=== PATIENT | male | born 1950 | race Caucasian/White ===

== ENCOUNTER 2017-08-14 08:47 | Inpatient (IN) | payer OTHER ==
[~2017-08-14] VITALS: Ht 177.8 cm; Wt 103.5 kg
[2017-08-14 09:09] LABS: BASOPHIL (%) 0.5 % (0-1); BASOPHIL COUNT 0.1 K/uL (0-0.1); EOSINOPHIL (%) 0.9 % (0-5); EOSINOPHIL COUNT 0.1 K/uL (0-0.3); HEMATOCRIT 45.5 % (38.0-50.0); HEMOGLOBIN 15.9 G/DL (12.5-16.6); IMMATURE GRANULOCYTE (%) 3.4 % (0.0-0.7); LYMPHOCYTE (%) 41.5 % (15-42); LYMPHOCYTE COUNT 4.6 K/uL (1.0-2.8); MCH 33.6 PG (29.0-34.0); MCHC 34.9 G/DL (30.0-36.0); MCV 96.2 FL (86-99); MONOCYTE (%) 7.3 % (3-12); MONOCYTE COUNT 0.8 K/uL (0-0.8); NEUTROPHIL (%) 46.4 % (45-76); NEUTROPHIL COUNT 5.1 K/uL (1.8-6.4); NRBC (%) 0.3 /100 WBC (0-0); PLATELET COUNT 182 K/uL (156-360); RBC DIS.WIDTH-CV 12.4 % (11.8-14.6); RBC DIS.WIDTH-SD 44.1 % (39-53); RED BLOOD COUNT 4.73 M/uL (4.00-5.50)
[2017-08-14 09:20] LABS: AMYLASE 48 IU/L (1-118); CHLORIDE 103 mEq/L (99-109); POTASSIUM 3.9 mEq/L (3.7-5.4); SODIUM 135 mEq/L (136-147)
[2017-08-14 09:22] LABS: GLUCOSE 106 mg/dL (70-99)
[2017-08-14 09:25] LABS: SERUM ETHYL ALCOHOL < 10 mg/dL
[2017-08-14 09:26] LABS: CREATININE 1.1 mg/dL (0.6-1.3); GFR ESTIMATE (CALCULATED) > 59 mL/min/ (58.99-99999); UREA NITROGEN (BUN) 13 mg/dL (9-23)
[2017-08-14 09:29] LABS: LIPASE 18 U/L (1.0-51.0)
[2017-08-14] MEDS ORDERED: FISH OIL 1,0001 EAC7 PO (11:22)
[2017-08-14] MEDS ORDERED: VITAMIN D31000 UNI2 PO (11:22)
[2017-08-14 12:35] VITALS: BP 126/73
[2017-08-14 15:39] LABS: APPEARANCE CLEAR ((CLEAR)); BILIRUBIN NEGATIVE; BLOOD NEGATIVE; COLOR YELLOW ((YELLOW)); GLUCOSE (STRIP) NEGATIVE; KETONES NEGATIVE; LEUKOCYTES NEGATIVE; NITRITE NEGATIVE; PROTEIN (STRIP) NEGATIVE; UCUL ADDED? NO; UROBILINOGEN 0.2 MG/DL (0.2-1.0)
[2017-08-14 15:58] LABS: SPECIFIC GRAVITY 1.053 (1.000-1.030)
[2017-08-14 16:02] LABS: AMPHETAMINE NEGATIVE (500 ng/mL); BARBITURATES NEGATIVE (200 ng/mL); BENZODIAZEPINES NEGATIVE (150 ng/mL); BUPRENORPHINE NEGATIVE (10 ng/mL); COCAINE NEGATIVE (150 ng/mL); METHADONE NEGATIVE (200 ng/mL); METHAMPHETAMINE NEGATIVE (500 ng/mL); OPIATES (MORPHINE) PRESUMPTIVE POSITIVE (100 ng/mL); OXYCODONE NEGATIVE (100 ng/mL); PHENCYCLIDINE NEGATIVE (25 ng/mL); PROPOXYPHENE NEGATIVE (300 ng/mL); THC CANNABINOIDS NEGATIVE (50 ng/mL); TRICYCLIC ANTIDEPRESSANTS NEGATIVE (300 ng/mL)
[2017-08-14 16:50] VITALS: BP 107/58
[2017-08-14 20:06] VITALS: BP 131/72
[2017-08-15] VITALS (7 sets, daily range): BP systolic 111–141; BP diastolic 56–88
[2017-08-16 05:03] VITALS: BP 114/54
[2017-08-16 08:00] VITALS: BP 154/81
[2017-08-16 16:45] VITALS: BP 150/77
== END 2017-08-16 17:00 | disposition home or self-care (01) | DRG 552 ==
LOC: TRA 08:47 → EDOF 10:36 → 3EAST 10:36 → ENRESERV 10:49 → EDOF 10:50 → ENRESERV 11:12 → 3EAST 11:58
PROVIDERS: Emergency Medicine
DX: S32.019A Unspecified fracture of first lumbar vertebra, initial encounter for closed fracture (principal); S32.029A Unspecified fracture of second lumbar vertebra, initial encounter for closed fracture; S32.039A Unspecified fracture of third lumbar vertebra, initial encounter for closed fracture; V58.5XXA Driver of pick-up truck or van injured in noncollision transport accident in traffic accident, initial encounter; Y92.411 Interstate highway as the place of occurrence of the external cause; Z88.0 Allergy status to penicillin; Z88.5 Allergy status to narcotic agent
CPT/HCPCS: 70450; 71260; 72125; 72129; 72132; 74177; 80048; 81003; 82150; 83690; 84999; 85025; 86850; 86900; 86901; 94799; 99281; 99285; G0480; J1170; J1200; J1885; J3010; J7050